=== PATIENT | male | born 1985 | race Hispanic/Latino ===

== ENCOUNTER 2022-01-11 17:40 | Emergency (ER) | payer SELFPAY ==
[~2022-01-11] VITALS: Ht 165.1 cm; Wt 74.8 kg
[~2022-01-11 17:40] MED LIST: NAPROSYN500 MG PO
[2022-01-11 17:55] VITALS: BP 141/95
[2022-01-11 18:00] VITALS: BP 127/87
[2022-01-11 18:30] VITALS: BP 127/85
== END 2022-01-11 18:19 | disposition home or self-care (01) | DRG 395 ==
LOC: ED 17:40
DX: K42.9 Umbilical hernia without obstruction or gangrene (principal)